=== PATIENT | male | born 1940 | race Two or more races ===

== ENCOUNTER 2017-10-08 22:46 | Emergency (ER) | payer OTHER ==
[~2017-10-08] VITALS: Ht 177.8 cm; Wt 105.2 kg
[2017-10-08 22:51] VITALS: Ht 177.8 cm; Wt 105.2 kg
[2017-10-08 23:45] LABS: BASOPHIL % 0.3 % (0-2); PLATELET COUNT 213 x10^3mcL (130-400)
[2017-10-08 23:51] LABS: RED CELL DISTRIBUTION WIDTH 14.9 % (11.5-14.5)
[2017-10-08 23:55] LABS: CALCIUM 8.7 mg/dL (8.5-10.1); CARBON DIOXIDE 26.3 mmol/L (21-32); CHLORIDE SERUM 111 mmol/L (98-107); CREATININE SERUM 1.3 mg/dL (0.7-1.3); GLUCOSE SERUM 64 mg/dL (74-106); POTASSIUM SERUM 3.8 mmol/L (3.5-5.1); SODIUM SERUM 145 mmol/L (136-145)
[2017-10-09] LABS: ALBUMIN 3.3 g/dL (3.4-5.0); ALKALINE PHOSPHATASE 139 U/L (46-116); ALT/SGPT 12 U/L (16-63); AST/SGOT 24 U/L (15-37); BILIRUBIN TOTAL 0.6 mg/dL (0.20-1.00); LIPASE 265 IU/L (73-393); TOTAL PROTEIN, SERUM 6.9 g/dL (6.4-8.2)
[2017-10-09 02:54] VITALS: BP 110/59
== END 2017-10-09 02:54 | disposition home or self-care (01) ==
LOC: ED 22:46
PROVIDERS: Emergency Medicine
DX: E11.649 Type 2 diabetes mellitus with hypoglycemia without coma (principal); E87.2 Acidosis; D64.9 Anemia, unspecified; I10 Essential (primary) hypertension; I50.9 Heart failure, unspecified; I48.91 Unspecified atrial fibrillation
CPT/HCPCS: 82962; J7030; Q0092